=== PATIENT | female | born 1990 | race Two or more races ===

== ENCOUNTER 2021-10-19 09:21 | Outpatient (CLI) | payer OTHER | END 2021-10-19 10:21 | disposition home or self-care (01) | LOC: PRENATAL 09:21 | PROVIDERS: ATTEND Obstetrics & Gynecology Maternal & Fetal Medicine | DX: Z31.69 Encounter for other general counseling and advice on procreation (principal) ==

== ENCOUNTER 2021-10-19 10:18 | Outpatient (CLI) | payer OTHER | END 2021-10-19 11:04 | disposition home or self-care (01) | LOC: LAB 10:18 | PROVIDERS: ATTEND Specialist | DX: Z20.822 Contact with and (suspected) exposure to COVID-19 (principal); J10.1 Influenza due to other identified influenza virus with other respiratory manifestations; A49.3 Mycoplasma infection, unspecified site ==

== ENCOUNTER 2021-12-19 08:47 | Outpatient (CLI) | payer OTHER | END 2021-12-19 11:30 | disposition home or self-care (01) | LOC: PRENATAL 08:47 | PROVIDERS: ATTEND Obstetrics & Gynecology Maternal & Fetal Medicine | DX: O35.0XX0 Maternal care for (suspected) central nervous system malformation in fetus, not applicable or unspecified (principal); O35.3XX0 Maternal care for (suspected) damage to fetus from viral disease in mother, not applicable or unspecified; O99.891 Other specified diseases and conditions complicating pregnancy; Z3A.20 20 weeks gestation of pregnancy ==

== ENCOUNTER 2022-04-19 14:30 | Inpatient (IN) | payer OTHER ==
[~2022-04-19] VITALS: Ht 162.6 cm; Wt 3.2 kg
[2022-05-01] MEDS ORDERED: PRENATAL + DHA1 EAC1 PO (23:05)
[2022-05-01] MEDS ORDERED: ALLEGRA ALLERGY60 MG PO (23:07)
[2022-05-05] MEDS ORDERED: IBUPROFEN800 MG PO (06:36)
== END 2022-05-05 12:49 | disposition home or self-care (01) | DRG 788 ==
LOC: LDR 05-01 22:15 → O/R 05-02 12:54 → OB/GYN 05-02 14:00 → LDR 05-04 14:30 → OB/GYN 05-05 12:49
PROVIDERS: ADMIT Specialist; ATTEND Specialist
PROC: 4A1HXCZ Monitoring of Products of Conception, Cardiac Rate, External Approach (ICD-10-PCS; 2022-05-01)
PROC: 10D00Z1 Extraction of Products of Conception, Low, Open Approach (ICD-10-PCS; principal; 2022-05-02 10:00)
DX: O62.0 Primary inadequate contractions (principal); O33.8 Maternal care for disproportion of other origin; O99.824 Streptococcus B carrier state complicating childbirth; Z3A.39 39 weeks gestation of pregnancy; Z37.0 Single live birth; Z20.822 Contact with and (suspected) exposure to COVID-19

== ENCOUNTER 2022-05-10 22:24 | Emergency (ER) | payer OTHER ==
[~2022-05-10] VITALS: Ht 162.6 cm; Wt 106.6 kg
[~2022-05-10 22:24] MED LIST: ALLEGRA ALLERGY60 MG PO; IBUPROFEN800 MG PO; PRENATAL + DHA1 EAC1 PO
== END 2022-05-10 23:24 | disposition home or self-care (01) ==
LOC: ER 22:24
DX: J21.9 Acute bronchiolitis, unspecified (principal); Z20.822 Contact with and (suspected) exposure to COVID-19

== ENCOUNTER 2022-06-16 17:52 | Emergency (ER) | payer OTHER ==
[~2022-06-16] VITALS: Ht 162.6 cm; Wt 88.0 kg
[2022-06-16] MEDS ORDERED: ANUSOL-HC30 G2 TOP (23:44)
[2022-06-16] MEDS ORDERED: MIRALAX510 GM PO (23:44)
== END 2022-06-17 00:01 | disposition home or self-care (01) ==
LOC: ER 17:52
DX: K62.89 Other specified diseases of anus and rectum (principal)

== ENCOUNTER 2025-01-04 14:20 | Emergency (ER) | payer OTHER ==
[~2025-01-04] VITALS: Ht 162.6 cm; Wt 97.5 kg
[~2025-01-04 14:20] MED LIST changes: +ANUSOL-HC30 G2 TOP; +MIRALAX510 GM PO
[2025-01-04] MEDS ORDERED: KETOROLAC TROMETHAMINE 60 MG VIAL IM ONE ×2 (15:30→15:36)
[2025-01-04] MEDS ORDERED: ACETAMINOPHEN 500 MG GEL..CAP PO ONE ×2 (15:30→15:36)
[2025-01-04] MEDS ORDERED: DEXAMETHASONE SODIUM PHOSPHATE 4 MG/ML VIAL IM ONE (15:30)
[2025-01-04] MEDS ORDERED: ORPHENADRINE CITRATE 30 MG/ML AMPUL IM ONE (15:30)
[2025-01-04] MEDS ORDERED: ORPHENADRINE CITRATE 30 MG/ML AMPUL ONE (15:35)
[2025-01-04] MEDS ORDERED: DEXAMETHASONE SODIUM PHOSPHATE 4 MG/ML VIAL ONE (15:36)
[2025-01-04] MEDS ORDERED: IBU600 MG PO (19:23)
[2025-01-04] MEDS ORDERED: NORFLEX100MG PO (19:23)
== END 2025-01-04 19:26 | disposition home or self-care (01) ==
LOC: ER 14:21
DX: M62.838 Other muscle spasm (principal); Z91.013 Allergy to seafood; Z91.018 Allergy to other foods; Z91.048 Other nonmedicinal substance allergy status